=== PATIENT | male | born 1975 ===

== ENCOUNTER 2018-02-19 17:46 | Emergency (ER) | payer OTHER, SELFPAY ==
[2018-02-19 18:06] VITALS: O2SAT 99
--- NOTE | 2018-02-19 18:30 | ED PDOC ---
Lower Extremity Pain/Injury Time Seen by Provider: 02/19/18 18:08 Chief Complaint (Nursing): Lower Extremity Problem/Injury Chief Complaint (Provider): Lower Extremity Problem/Injury History Per: Patient History/Exam Limitations: no limitations Onset/Duration Of Symptoms: Hrs Current Symptoms Are (Timing): Still Present Additional Complaint(s): 43 y/o male presents to the ED for evaluation of a crush injury to the right great toe. Patient's toe was crushed by a machine about 2 hours prior to arrival. Patient states he was wearing sneakers when object fell on his toe. PMD: None Provided Past Medical History Reviewed: Historical Data, Nursing Documentation, Vital Signs Vital Signs: Last Vital Signs Temp 98.6 F 02/19/18 18:03 Pulse 59 L 02/19/18 18:03 Resp 16 02/19/18 18:03 BP 131/84 02/19/18 18:03 Pulse Ox 99 02/19/18 18:03 - Medical History PMH: No Chronic Diseases - Surgical History Surgical History: Appendectomy - Family History Family History: States: Unknown Family Hx - Home Medications Home Medications: Ambulatory Orders Medication Instructions Recorded Ibuprofen [Motrin] 600 mg PO Q6H PRN #20 tab 08/09/14 Oseltamivir Phosphate [Tamiflu] 75 mg PO BID #10 cap 08/09/14 Polymyxin/Trimethoprim Sulfate 2 - 3 drop OU Q4 #1 bottle 11/15/14 [Polytrim Ophth Soln] Acetaminophen/Butalbital/Caf 1 tab PO Q4 #10 tab 07/01/15 [Fioricet 325 mg-50 mg-40 mg] traMADol [Ultram] 50 mg PO Q6H PRN #10 tab 02/19/18 - Allergies Allergies/Adverse Reactions: Allergies Allergy/AdvReac Type Severity Reaction Status Date / Time No Known Allergies Allergy Verified 08/09/14 11:01 Review of Systems ROS Statement: Except As Marked, All Systems Reviewed And Found Negative Musculoskeletal: Positive for: Foot Pain (Crush injury to right great toe) Physical Exam - Reviewed Nursing Documentation Reviewed: Yes Vital Signs Reviewed: Yes - Physical Exam Appears: Positive for: Non-toxic, No Acute Distress Head Exam: Positive for: ATRAUMATIC Skin: Positive for: Normal Color, Warm Eye Exam: Positive for: Normal appearance Neck: Positive for: Normal Cardiovascular/Chest: Negative for: Bradycardia, Tachycardia Respiratory: Negative for: Respiratory Distress Extremity: Positive for: Tenderness (to right great toe), Other (Superficial laceration to the dorsal surface of the right great toe. No active bleeding. ) - ECG O2 Sat by Pulse Oximetry: 99 (RA) Pulse Ox Interpretation: Normal Medical Decision Making Medical Decision Making: Time: 1828 Plan: -- Ultram 50 mg PO -- Foot Right Great Toe Routine (+) great toe RX Podiatry consult completed. Scribe Attestation: Documented by Nicki Austin, acting as a scribe for Abena Jha PA-C. Provider Scribe Attestation: All medical record entries made by the Scribe were at my direction and personally dictated by me. I have reviewed the chart and agree that the record accurately reflects my personal performance of the history, physical exam, medical decision making, and the department course for this patient. I have also personally directed, reviewed, and agree with the discharge instructions and disposition. Disposition - Clinical Impression Clinical Impression: Fractured great toe - Patient ED Disposition Is Patient to be Admitted: No Counseled Patient/Family Regarding: Diagnosis, Need For Followup, Rx Given - Disposition Referrals: Podiatry Clinic [Outside] Disposition: Routine/Home Disposition Time: 20:07 Condition: GOOD Prescriptions: traMADol [Ultram] 50 mg PO Q6H PRN #10 tab PRN Reason: Pain Instructions: Toe Fracture (DC) Forms: [employer] (Bengali) Print Language: ICELANDIC
[2018-02-19] MEDS ORDERED: Tdap Vaccine 0.5 ml Vial (10-64 yrs) IM ONE (20:20)
[2018-02-19] MEDS: Tdap Vaccine 0.5 ml Vial (10-64 yrs) IM ONE (21:01)
--- NOTE | 2018-02-19 21:09 | CP.PCM.PN ---
Subjective - Date & Time of Evaluation Date of Evaluation: 02/19/18 Time of Evaluation: 19:30 - Subjective Subjective: Podiatry Consult note: Dr. Reina 43 year old male with no significant PMHx was evaluated in ED for right big toe pain. Patient reports that he was at work when the fork lift came down on his big toe. Patient reports that he heard a small crack in his foot at the time of the injur. Reports that he felt immediate pain to the toe after the injury. States that he noticed a little blood after the injury. Patient grades his pain as 7/10 on VAS today. Reports that it was 10/10 at the time of the injury. Denies of walking on his foot directly after the injury. Denies of taking any pain medication prior to coming to the hospital. Denies of recent F/N/V/C/SOB/CP /headache. No other pedal complains at this time. PMHx: Denies PSHx: Denies Allergies: N.K.D.A SHx: Denies smoking, occasional EtOH use, denies illicit drug usage Objective - Vital Signs/Intake and Output Vital Signs (last 24 hours): Temp Pulse Resp BP Pulse Ox 98.6 F 59 L 16 131/84 99 02/19/18 18:03 02/19/18 18:03 02/19/18 18:03 02/19/18 18:03 02/19/18 20:08 - Constitutional Appears: Well, Non-toxic, No Acute Distress - Extremities Exam Additional comments: Bilateral LE focused exam VASC: DP/PT pulses are palpable 2/4; Cap refill time: < 3 sec to all digits; Temp gradient: warm to cool from proximal to distal; localized mild amount of edema with diffuse ecchymosis noted on the right hallux DERM: small superficial epidermal shedding measuring approx 0.5 cm x 0.2 cm noted on dorsal aspect of the right hallux proximal to nail plate with dry blood noted; no clinical suspicion of active infection NEURO: Protective sensation grossly intact ORTHO: AROM and PROM intact at the 1st MTPJ and hallux inter-phalangeal joint with mild pain, pain on palpation on the lateral aspect of the mid right hallux , no pain on palpation at the metatarsal head, piano valdez test: negative, MMT: 5/ 5 in all four direction at the ankle joint bilaterally - Neurological Exam Neurological Exam: Alert, Awake, Oriented x3 - Psychiatric Exam Psychiatric exam: Normal Affect, Normal Mood Assessment and Plan - Assessment and Plan (Free Text) Assessment: 43 year old male with no significant PMHx evaluated for right distal phalanx fracture of the hallux Plan: Patient seen and evaluated Discussed plan with attending Dr. Reina Vitals reviewed - stable Tetanus ppx Ancef Right foot x-rays ordered/reviewed - multiple radiolucent line noted on the lateral condyle of the distal phalanx of the hallux consistent with comminuted fx with no displacement Superficial wound cleaned/flushed with copious amount of betadine infused saline Sotero splint applied using 4x4 gauze, kerlix Surgical shoe provided - educated patient to remain in shoe at all time during weight bearing Educated patient of the RICE protocol Educated to take OTC ibuprofen if needed Educated patient to follow up with podiatry in the clinic Demonstrated verbal understanding of the plan Thank you for the podiatry consult and allowing to take part in patient care
[2018-02-19 21:10] VITALS: BP 128/78; PULSE 68; RESP 18; TEMP 98.2
--- NOTE | 2018-02-20 08:58 | RAD ---
PROCEDURE: Radiographs of the right great toe. TECHNIQUE:: AP radiograph of the right foot, with oblique and lateral view of the right great toe. COMPARISON: None. FINDINGS: BONES: There is a nondisplaced comminuted fracture of the lateral base of the distal phalanx right great toe, articular. No dislocation. JOINTS: Normal. SOFT TISSUES: There is questionable limited local soft tissue edema at the site of the fracture. OTHER FINDINGS: None. IMPRESSION: Small but comminuted articular, nondisplaced fracture of the lateral base of the distal phalanx right great toe is identified with limited local soft tissue edema. No dislocation.
== END 2018-02-19 21:47 | disposition home or self-care (01) ==
LOC: H.ER 17:46
DX: S92.411A Displaced fracture of proximal phalanx of right great toe, initial encounter for closed fracture (principal); W23.0XXA Caught, crushed, jammed, or pinched between moving objects, initial encounter; W22.8XXA Striking against or struck by other objects, initial encounter; Y99.0 Civilian activity done for income or pay
CPT/HCPCS: 73660; 90471; 90715; 96372; 99283; J0690

== ENCOUNTER 2018-02-21 12:32 | Emergency (ER) | payer OTHER ==
[2018-02-21 12:39] VITALS: BP 146/83; PULSE 76; RESP 18; TEMP 98.6; O2SAT 98
--- NOTE | 2018-02-21 13:12 | CP.PCM.CON ---
History of Present Illness - History of Present Illness History of Present Illness: Podiatry Consult note: Dr. Reina 43 year old male with no significant PMHx was seen and evaluated in ED for right big toe pain. patient was sitting in bed and appears in pain. Patient is AAO X 3. Patient states that he was at work 2 days ago when the fork lift came down on his big toe. Patient states that he came to the ED at [place] where he was seen X-ray done for him and he was informed that he has a fracture in his right big toe. Patient states that he received a prescription for pain medicine. His 1st and 2nd toes fixed together with tape. Patient states that he was instructed to ice and elevate his right foot but he did work in the past 2 days so he elevated the foot intermittently and didn't ice it as his big toe was covered by the tape. Patient states that he comes today cause his pain is still present 04/07. He states that it didn't get worse but it didn't improve. Patient denies any further trauma to his right foot. Patient states that he was using the surgical shoe whenever he ambulate. Patient states that he tried the pain medication for his pain but it didn't help him. Patient denies of recent F/ N/V/C/SOB/CP/headache. Patient denies any other pedal complains at this time. PMHx: Denies PSHx: Denies Allergies: N.K.D.A SHx: Denies smoking, occasional EtOH use, denies illicit drug usage Review of Systems - Review of Systems Review of Systems: As per HPI Past Patient History - Past Social History Smoking Status: Never Smoked - PSYCHIATRIC Hx Substance Use: No - SURGICAL HISTORY Hx Appendectomy: Yes - ANESTHESIA Hx Anesthesia: Yes Hx Anesthesia Reactions: No Meds Allergies/Adverse Reactions: Allergies Allergy/AdvReac Type Severity Reaction Status Date / Time No Known Allergies Allergy Verified 08/09/14 11:01 Physical Exam - Constitutional Appears: Well, Non-toxic, No Acute Distress - Head Exam Head Exam: ATRAUMATIC, NORMOCEPHALIC - Extremities Exam Additional comments: Right LE focused exam Vasc: DP/PT 2/4; Cap refill time: < 3 sec to all digits; Temp gradient: warm to cool from proximal to distal; localized moderate amount of non pitting edema and diffuse circumferential ecchymosis noted on the right hallux with a clear fluid filled blister in the dorsum of the right hallux at the level of IP joint. Neuro: Protective and gross sensation are intact Derm: small superficial epidermal shedding measuring approx 0.5 cm x 0.2 cm noted on dorsal aspect of the right hallux proximal to nail plate with dry blood noted; no clinical suspicion of active infection. Localized moderate amount of non pitting edema and diffuse circumferential ecchymosis noted on the right hallux with a clear fluid filled blister in the dorsum of the right hallux at the level of IP joint. MSK: AROM and PROM restricted at the 1st MTPJ and hallux inter-phalangeal joint with moderate to sever pain, pain on palpation on the lateral aspect of the mid right hallux, no pain on palpation at the metatarsal head, piano valdez test: negative, Muscle power intact 5/5 in all muscle groups. Pain ellicited when squeezing the patient right calf. - Neurological Exam Neurological exam: Alert, Oriented x3 - Psychiatric Exam Psychiatric exam: Normal Affect, Normal Mood Results - Vital Signs Recent Vital Signs: Last Vital Signs Temp 98.6 F 02/21/18 12:37 Pulse 76 02/21/18 12:37 Resp 18 02/21/18 12:37 BP 146/83 02/21/18 12:37 Pulse Ox 98 02/21/18 12:37 Assessment & Plan - Assessment and Plan (Free Text) Assessment: 43 year old male patient seen and evaluated for right distal phalanx fracture of the hallux and pain. Plan: Patient seen and evaluated Discussed plan with attending Dr. Nuno Garcia reviewed - stable Right foot x-rays ordered/reviewed - multiple radiolucent line noted on the lateral condyle of the distal phalanx of the hallux consistent with comminuted fx with no displacement Right leg Duplex negative for DVT. Right hallux blister poped using sterile 25 G needle. dressing using bacitracin and DSD. Posterior splint applied to the patient left LE. Patient instructed to keep his left foot NWB and to ambulate using crutches. Dispensed pair of crutches for the patient. Instructed the patient to do the RICE protocol at least for 10 days. instructed to take OTC ibuprofen or Ultram which was prescribed by the ED doctor before if needed Demonstrated verbal understanding of the plan patient to follow up with podiatry in the clinic - Date & Time Date: 02/21/18 Time: 13:12
--- NOTE | 2018-02-21 15:27 | RAD ---
PROCEDURE: Radiographs of the right great toe. TECHNIQUE:: AP radiograph of the right foot, with oblique and lateral view of the right great toe. COMPARISON: 02/19/2018 FINDINGS: BONES: Re- demonstration of fracture base of distal phalanx right 1st digit. The finding is marked on the study for review. JOINTS: Normal. SOFT TISSUES: Persistent soft tissue swelling. OTHER FINDINGS: None. IMPRESSION: Stable findings with respect to 1st digit fracture. No new/acute findings.
--- NOTE | 2018-02-21 15:49 | ED PDOC ---
Lower Extremity Pain/Injury Time Seen by Provider: 02/21/18 12:40 Chief Complaint (Nursing): Lower Extremity Problem/Injury Chief Complaint (Provider): Lower Extremity Problem/Injury History Per: Patient History/Exam Limitations: no limitations Onset/Duration Of Symptoms: Days (x2) Current Symptoms Are (Timing): Still Present Additional Complaint(s): 43 year old male with no significant medical history presents to the ED with right foot injury onset 2 days ago. Patient was seen in this ED after sustaining a crush injury at work. At the time, an XR was done and patient was found to have a fracture in his distal great toe. After a podiatry consult, patient was given Tramadol and an antibiotic injection because he has a small abrasion on the top of his toe. Patient experienced worsening pain today, which prompted a visit to the ED. He states he took Tramadol yesterday, but not today. He has no further medical complaints. PMD: none provided Past Medical History Reviewed: Historical Data, Nursing Documentation, Vital Signs Vital Signs: Last Vital Signs Temp 98.6 F 02/21/18 12:37 Pulse 76 02/21/18 12:37 Resp 18 02/21/18 12:37 BP 146/83 02/21/18 12:37 Pulse Ox 98 02/21/18 12:37 - Medical History PMH: No Chronic Diseases - Surgical History Surgical History: Appendectomy - Family History Family History: States: Unknown Family Hx - Home Medications Home Medications: Ambulatory Orders Medication Instructions Recorded Ibuprofen [Motrin] 600 mg PO Q6H PRN #20 tab 08/09/14 Oseltamivir Phosphate [Tamiflu] 75 mg PO BID #10 cap 08/09/14 Polymyxin/Trimethoprim Sulfate 2 - 3 drop OU Q4 #1 bottle 11/15/14 [Polytrim Ophth Soln] Acetaminophen/Butalbital/Caf 1 tab PO Q4 #10 tab 07/01/15 [Fioricet 325 mg-50 mg-40 mg] traMADol [Ultram] 50 mg PO Q6H PRN #10 tab 02/19/18 - Allergies Allergies/Adverse Reactions: Allergies Allergy/AdvReac Type Severity Reaction Status Date / Time No Known Allergies Allergy Verified 08/09/14 11:01 Review of Systems ROS Statement: Except As Marked, All Systems Reviewed And Found Negative Musculoskeletal: Positive for: Foot Pain (right) Physical Exam - Reviewed Nursing Documentation Reviewed: Yes Vital Signs Reviewed: Yes - Physical Exam Appears: Positive for: Non-toxic, No Acute Distress Head Exam: Positive for: ATRAUMATIC Skin: Positive for: Normal Color, Warm, DRY Eye Exam: Positive for: Normal appearance Neck: Positive for: Normal Respiratory: Negative for: Accessory Muscle Use, Respiratory Distress Extremity: Positive for: Tenderness (right great toe), Swelling (right great toe ), Other (bruising to right great toe, healing abrasion with surrounding erythema, no drainage) Neurologic/Psych: Positive for: Alert - ECG O2 Sat by Pulse Oximetry: 98 (RA) Pulse Ox Interpretation: Normal Medical Decision Making Medical Decision Making: Time: 13:34 Initial Plan: --Right foot XR --Duplex LE US Time: 14:00 --Patient seen by podiatry, requested repeat XR and US because patient states pain was radiating up calf. Both returned with normal results. no change in XR. (-) DVT. Splint placed by podiatry. Scribe Attestation: Documented by Aggie Chacon, acting as a scribe for Abena Jha PA-C. Provider Scribe Attestation: All medical record entries made by the Scribe were at my direction and personally dictated by me. I have reviewed the chart and agree that the record accurately reflects my personal performance of the history, physical exam, medical decision making, and the department course for this patient. I have also personally directed, reviewed, and agree with the discharge instructions and disposition. Disposition - Clinical Impression Clinical Impression: Fractured great toe - Patient ED Disposition Is Patient to be Admitted: No Counseled Patient/Family Regarding: Diagnosis, Need For Followup - Disposition Referrals: Podiatry Clinic [Outside] Disposition: Routine/Home Disposition Time: 16:01 Condition: STABLE Additional Instructions: Please take motrin or tramadol. Instructions: Toe Fracture (DC) Forms: [facility] (Angolan) Print Language: ANGOLAN
--- NOTE | 2018-02-21 16:07 | US ---
Date of service: 02/21/2018 PROCEDURE: Right lower extremity venous duplex Doppler. HISTORY: calf pain COMPARISON: None available. TECHNIQUE: Common femoral, superficial femoral, popliteal and posterior tibial veins were evaluated. Flow was assessed with color Doppler, compressibility, assessment of phasic flow and augmentation response. FINDINGS: COMMON FEMORAL VEIN: Unremarkable. SUPERFICIAL FEMORAL VEIN: Unremarkable. POPLITEAL VEIN: Unremarkable. POSTERIOR TIBIAL VEIN: Unremarkable. OTHER FINDINGS: None. IMPRESSION: No evidence of deep venous thrombosis in the right lower extremity.
== END 2018-02-21 17:14 | disposition home or self-care (01) ==
LOC: H.ER 12:32
DX: S92.411A Displaced fracture of proximal phalanx of right great toe, initial encounter for closed fracture (principal); W22.8XXA Striking against or struck by other objects, initial encounter; Y99.0 Civilian activity done for income or pay

== ENCOUNTER 2018-11-09 15:07 | Emergency (ER) | payer OTHER ==
[2018-11-09 15:35] VITALS: RESP 18
[2018-11-09] MEDS ORDERED: Sodium Chloride 0.9% 1,000 ML IV STA (15:49)
--- NOTE | 2018-11-09 16:02 | ED PDOC ---
History of Present Illness History of Present Illness: 43 y/o male presents to the ED for evaluation of a tactile fever for the past few days associated with a bi-temporal headache and diffuse body aches. Patient reports headache resolves after taking Tylenol and returns once medications wear off. Patient notes of developing epigastric abdominal pain associated with nausea and one episode of watery, non-bloody diarrhea earlier today. Patient reports he last took Tylenol at 9 PM yesterday. Patient denies taking medications today. Patient additionally denies sore throat, cough, congestion, neck pain, neck stiffness, rash, melena, hematochezia, previous abdominal surgery and head injury. PMD: Priscila Sheridan HPI: Influenza Time Seen by Provider: 11/09/18 15:36 Chief Complaint: Flu-like Symptoms Chief Complaint (Provider): Flu-like Symptoms History Per: Patient Exam Limitations: no limitations Onset/Duration Of Symptoms: Days (x4) Symptoms include: fever, headache, bodyaches Past Medical History Reviewed: Historical Data, Nursing Documentation, Vital Signs Vital Signs: Last Vital Signs Temp 99.5 F 11/09/18 15:32 Pulse 84 11/09/18 15:32 Resp 18 11/09/18 15:32 BP Pulse Ox 99 11/09/18 15:32 - Medical History PMH: No Chronic Diseases - Surgical History Surgical History: Appendectomy - Family History Family History: States: Unknown Family Hx - Home Medications Home Medications: Ambulatory Orders Medication Instructions Recorded Ibuprofen [Motrin] 600 mg PO Q6H PRN #20 tab 08/09/14 Oseltamivir Phosphate [Tamiflu] 75 mg PO BID #10 cap 08/09/14 Polymyxin/Trimethoprim Sulfate 2 - 3 drop OU Q4 #1 bottle 11/15/14 [Polytrim Ophth Soln] Acetaminophen/Butalbital/Caf 1 tab PO Q4 #10 tab 07/01/15 [Fioricet 325 mg-50 mg-40 mg] traMADol [Ultram] 50 mg PO Q6H PRN #10 tab 02/19/18 Ibuprofen [Motrin Tab] 800 mg PO TID PRN #12 tab 11/09/18 Metoclopramide [Reglan] 10 mg PO TID PRN #10 tab 11/09/18 - Allergies Allergies/Adverse Reactions: Allergies Allergy/AdvReac Type Severity Reaction Status Date / Time No Known Allergies Allergy Verified 08/09/14 11:01 Review of Systems ROS Statement: Except As Marked, All Systems Reviewed And Found Negative Constitutional: Positive for: Fever (tactile), Other (diffuse body aches) ENT: Negative for: Nose Congestion, Throat Pain Respiratory: Negative for: Cough Gastrointestinal: Positive for: Nausea, Abdominal Pain (epigastric), Diarrhea. Negative for: Melena, Hematochezia Musculoskeletal: Negative for: Neck Pain (or stickness) Skin: Negative for: Rash Neurological: Positive for: Headache (bi-temporal) Physical Exam - Reviewed Nursing Documentation Reviewed: Yes Vital Signs Reviewed: Yes - Physical Exam Appears: Positive for: No Acute Distress Head Exam: Positive for: ATRAUMATIC, NORMAL INSPECTION, NORMOCEPHALIC Skin: Positive for: Normal Color, Warm, Dry Eye Exam: Positive for: Normal appearance, EOMI, PERRL ENT: Positive for: Normal ENT Inspection Neck: Positive for: Normal, Painless ROM, Supple Cardiovascular/Chest: Positive for: Regular Rate, Rhythm. Negative for: Murmur Respiratory: Positive for: Normal Breath Sounds. Negative for: Respiratory Distress Gastrointestinal/Abdominal: Positive for: Normal Exam, Soft. Negative for: Tenderness Extremity: Positive for: Normal ROM (upper/lower). Negative for: Deformity Neurological/Psych: Positive for: Awake, Alert, Oriented (x3). Negative for: Motor/Sensory Deficits Medical Decision Making Medical Decision Making: Time: 1548 Plan: -- CT Head w/o Contrast -- CMP -- Liapse -- CBC with Differentials -- Sodium Chloride IV 1000 mls/hr -- Reglan 10 mg PO -- Blood Culture -- IV Insertion -- Influenza A B -- Rapid Strep Group A Antigen -- Urinalysis Time: 1605 PROCEDURE: CT HEAD WITHOUT CONTRAST. HISTORY: headache COMPARISON: CT head dated 07/01/2015. TECHNIQUE: Axial computed tomography images were obtained through the head/brain without intravenous contrast. Radiation dose: Total exam DLP = 834.9 mGy-cm. This CT exam was performed using one or more of the following dose reduction techniques: Automated exposure control, adjustment of the mA and/or kV according to patient size, and/or use of iterative reconstruction technique. FINDINGS: HEMORRHAGE: No intracranial hemorrhage. BRAIN: No mass effect or edema. No atrophy or chronic microvascular ischemic changes. VENTRICLES: Unremarkable. No hydrocephalus. CALVARIUM: Unremarkable. PARANASAL SINUSES: Unremarkable as visualized. No significant inflammatory changes. MASTOID AIR CELLS: Unremarkable as visualized. No inflammatory changes. OTHER FINDINGS: None. IMPRESSION: No acute intracranial pathology. Time: 1849 Discussion using [employer] Analyst #[id number]. -- On repeat vitals, patient is now febrile with a temperature of 101.1. Patient is now reporting of feeling complete relief of headache, body aches and nausea. Patient stats he is feeling much better. Patient denies light sensitivity, neck pain, neck stiffness. On exam, neck remains supple with negative kernig' sign and Brudzinski's sign. Patient offered lumbar puncture but refused stating he is feeling much better and will return if symptoms return. Strict return precautions given. -- Case discussed with Dr. Alonzo who agrees with plan of care. Scribe Attestation: Documented by Nicki Austin, acting as a scribe Fernando Blake PA-C. Provider Scribe Attestation: All medical record entries made by the Scribe were at my direction and personally dictated by me. I have reviewed the chart and agree that the record accurately reflects my personal performance of the history, physical exam, medical decision making, and the department course for this patient. I have also personally directed, reviewed, and agree with the discharge instructions and disposition. - Laboratory Results Result Diagrams: 11/09/18 16:00 11/09/18 16:00 - ECG O2 Sat by Pulse Oximetry: 99 (RA) Pulse Ox Interpretation: Normal Disposition - Clinical Impression Clinical Impression: Viral syndrome - Patient ED Disposition Is Patient to be Admitted: No - Disposition Referrals: [facility] [Outside] [facility] [Outside] Disposition: Routine/Home Disposition Time: 18:50 Condition: IMPROVED Additional Instructions: FOLLOW UP WITH YOUR DOCTOR FOR FURTHER EVALUATION RETURN TO ED IMMEDIATELY IF SYMPTOMS WORSEN GIOVANNI LINN, thank you for letting us take care of you today. Your provider was Markus Alonzo MD and you were treated for HEAD PAIN. The emergency medical care you received today was directed at your acute symptoms. If you were prescribed any medication, please fill it and take as directed. It may take several days for your symptoms to resolve. Return to the Emergency D epartment if your symptoms worsen, do not improve, or if you have any other problems. Please contact your doctor or call one of the physicians/clinics you have been referred to that are listed on the Patient Visit Information form that is included in your discharge packet. Bring any paperwork you were given at discharge with you along with any medications you are taking to your follow up visit. Our treatment cannot replace ongoing medical care by a primary care provider outside of the emergency department. Thank you for allowing the [facility] team to be part of your care today. If you had an X-Ray or CT scan: A Radiologist will review the ED reading if any change in treatment is needed we will contact you. If you had a blood, urine, or wound culture: It will take several days for the results, if any change in treatment is needed we will contact you. If you had an STI test: It will take 48 hours for the results. Please call after 1 week if you have not heard back. Prescriptions: Ibuprofen [Motrin Tab] 800 mg PO TID PRN #12 tab PRN Reason: headache or fever Metoclopramide [Reglan] 10 mg PO TID PRN #10 tab PRN Reason: headache or nausea Instructions: Viral Syndrome (DC) Forms: [employer] (E[place]ian), [facility] School/Work Excuse Print Language: SINHALA
--- NOTE | 2018-11-09 16:12 | CT ---
Date of service: 11/09/2018 PROCEDURE: CT HEAD WITHOUT CONTRAST. HISTORY: headache COMPARISON: CT head dated 07/01/2015. TECHNIQUE: Axial computed tomography images were obtained through the head/brain without intravenous contrast. Radiation dose: Total exam DLP = 834.9 mGy-cm. This CT exam was performed using one or more of the following dose reduction techniques: Automated exposure control, adjustment of the mA and/or kV according to patient size, and/or use of iterative reconstruction technique. FINDINGS: HEMORRHAGE: No intracranial hemorrhage. BRAIN: No mass effect or edema. No atrophy or chronic microvascular ischemic changes. VENTRICLES: Unremarkable. No hydrocephalus. CALVARIUM: Unremarkable. PARANASAL SINUSES: Unremarkable as visualized. No significant inflammatory changes. MASTOID AIR CELLS: Unremarkable as visualized. No inflammatory changes. OTHER FINDINGS: None. IMPRESSION: No acute intracranial pathology.
[2018-11-09 16:56] LABS: BASO % 0.3 % (0.0-2.0); EOS % 0.2 % (0.0-4.0); HEMOGLOBIN 13.7 g/dL (12.0-18.0); LYMPH # 1.4 K/uL (1.0-4.3); LYMPH % 11.8 % (20.0-40.0); MEAN CELL VOLUME 87.4 fl (80.0-94.0); MEAN CORPUSCULAR HEMOGLOBIN 29.3 pg (27.0-31.0); MEAN CORPUSCULAR HGB CONC 33.5 g/dL (33.0-37.0); MEAN PLATELET VOLUME 8.8 fl (7.2-11.7); MONO # 0.9 K/uL (0.0-0.8); MONO % 7.3 % (0.0-10.0); NEUT # 9.7 K/uL (1.8-7.0); NEUT % 80.4 % (50.0-75.0); RBC 4.69 Mil/uL (4.40-5.90); RED CELL DISTRIBUTION WIDTH 12.5 % (11.5-14.5); WHITE BLOOD COUNT 12.1 K/uL (4.8-10.8)
[2018-11-09 16:57] LABS: SQUAMOUS EPITHIAL < 1 /hpf (0-5); URINE BILIRUBIN NEGATIVE (NEGATIVE); URINE BLOOD MODERATE (NEGATIVE); URINE CLARITY SLIGHTY-CLOUDY (Clear); URINE COLOR YELLOW (YELLOW); URINE GLUCOSE (UA) NEG (NEGATIVE); URINE LEUKOCYTE ESTERASE NEG Leu/uL (Negative); URINE PROTEIN 30 mg/dL (NEGATIVE); URINE UROBILINOGEN 0.2-1.0 mg/dL (0.2-1.0)
[2018-11-09 18:18] LABS: ALB/GLOB RATIO 1.2 (1.0-2.1); ALBUMIN 4.4 g/dL (3.5-5.0); ALT/SGPT 47 U/L (21-72); AST/SGOT 45 U/L (17-59); BLOOD UREA NITROGEN 14 mg/dl (9-20); CALCIUM 8.6 mg/dL (8.4-10.2); GFR NON-AFRICAN AMERICAN > 60; LIPASE 43 U/L (23-300)
[2018-11-09 19:54] VITALS: BP 112/56; PULSE 73; TEMP 100.4
[2018-11-10] VITALS: O2SAT 99
== END 2018-11-09 19:55 | disposition home or self-care (01) ==
LOC: H.ER 15:07
DX: B34.9 Viral infection, unspecified (principal); R19.7 Diarrhea, unspecified
CPT/HCPCS: 70450; 80053; 81003; 83690; 85025; 87040; 87070; 87430; 87804; 96360; 99285; J2765; J7030